=== PATIENT | male | born 1935 | race Caucasian/White ===

== ENCOUNTER 2017-07-25 23:13 | Inpatient (IN) | payer MEDICARE ==
[~2017-07-25] VITALS: Ht 185.4 cm; Wt 91.2 kg
[2017-07-25] MEDS ORDERED: METFORMIN HCL850 MG PO (23:35)
[2017-07-25] MEDS ORDERED: ZESTRIL20 MG PO (23:35)
[2017-07-25] MEDS ORDERED: PENTOXIFYL XR400 M1 PO (23:36)
[2017-07-25 23:54] LABS: BASOPHIL % 0.4 % (0-2); PLATELET COUNT 335 x10^3mcL (130-400); RED CELL DISTRIBUTION WIDTH 13.1 % (11.5-14.5)
[2017-07-25 23:57] LABS: UA SPECIFIC GRAVITY 1.025 (1.005-1.035); microscopic required? YES; urine erythrocyte 2+ (NEGATIVE)
[2017-07-26 00:04] LABS: CALCIUM 8.3 mg/dL (8.5-10.1); CARBON DIOXIDE 22.9 mmol/L (21-32); CHLORIDE SERUM 101 mmol/L (98-107); CREATININE SERUM 1.5 mg/dL (0.7-1.3); GLUCOSE SERUM 260 mg/dL (74-106); SODIUM SERUM 137 mmol/L (136-145)
[2017-07-26 00:17] LABS: ALKALINE PHOSPHATASE 114 U/L (46-116); ALT/SGPT 17 U/L (16-63); AST/SGOT 17 U/L (15-37); BILIRUBIN TOTAL 0.4 mg/dL (0.20-1.00); TOTAL PROTEIN, SERUM 7.8 g/dL (6.4-8.2)
[2017-07-26 00:18] LABS: ALBUMIN 3.1 g/dL (3.4-5.0); CK-MB 0.7 ng/mL (0-3.6)
[2017-07-26 02:09] LABS: CHOLESTEROL/HDL RATIO 5.2; MAGNESIUM 1.4 mg/dL (1.8-2.4)
[2017-07-26 02:13] LABS: T3 TOTAL 0.72 ng/mL
[2017-07-26 02:15] LABS: FREE T4 0.99 ng/dL (0.76-1.46); FREE THYROXINE INDEX 2.3 ug/dL (1.4-4.5); T4(THYROXINE) 6.5 ug/dL (4.7-13.3)
[2017-07-26 02:28] VITALS: BP 118/57
[2017-07-26 05:15] VITALS: BP 99/55
[2017-07-26 07:54] LABS: BASOPHIL % 0.3 % (0-2); PLATELET COUNT 281 x10^3mcL (130-400)
[2017-07-26 08:02] LABS: CALCIUM 7.4 mg/dL (8.5-10.1); CARBON DIOXIDE 23.2 mmol/L (21-32); CHLORIDE SERUM 107 mmol/L (98-107); CREATININE SERUM 1.2 mg/dL (0.7-1.3); GLUCOSE SERUM 222 mg/dL (74-106); SODIUM SERUM 141 mmol/L (136-145)
[2017-07-26 09:19] VITALS: BP 109/56
[2017-07-26 12:03] VITALS: BP 115/52
[2017-07-26 17:52] VITALS: BP 131/64
[2017-07-26 21:45] VITALS: BP 142/69
[2017-07-27 05:42] VITALS: BP 136/68
[2017-07-27 05:57] LABS: BASOPHIL % 0.1 % (0-2); PLATELET COUNT 314 x10^3mcL (130-400); RED CELL DISTRIBUTION WIDTH 13.1 % (11.5-14.5)
[2017-07-27 06:15] LABS: CALCIUM 8.4 mg/dL (8.5-10.1); CARBON DIOXIDE 24.6 mmol/L (21-32); CHLORIDE SERUM 102 mmol/L (98-107); CREATININE SERUM 1.2 mg/dL (0.7-1.3); GLUCOSE SERUM 146 mg/dL (74-106); MAGNESIUM 1.8 mg/dL (1.8-2.4); PHOSPHOROUS 2.7 mg/dL (2.5-4.9); POTASSIUM SERUM 4.5 mmol/L (3.5-5.1); SODIUM SERUM 136 mmol/L (136-145)
[2017-07-27 09:56] VITALS: BP 123/70
[2017-07-27 11:34] VITALS: BP 123/64
[2017-07-27 16:59] VITALS: BP 136/68
[2017-07-27 21:58] VITALS: BP 136/83
[2017-07-28 06:07] LABS: BASOPHIL % 0.3 % (0-2); PLATELET COUNT 301 x10^3mcL (130-400); RED CELL DISTRIBUTION WIDTH 12.5 % (11.5-14.5)
[2017-07-28 06:14] VITALS: BP 124/61
[2017-07-28 06:21] LABS: CALCIUM 8.4 mg/dL (8.5-10.1); CARBON DIOXIDE 25.8 mmol/L (21-32); CHLORIDE SERUM 102 mmol/L (98-107); CREATININE SERUM 1.1 mg/dL (0.7-1.3); GLUCOSE SERUM 145 mg/dL (74-106); MAGNESIUM 1.7 mg/dL (1.8-2.4); PHOSPHOROUS 2.9 mg/dL (2.5-4.9); POTASSIUM SERUM 3.7 mmol/L (3.5-5.1); SODIUM SERUM 136 mmol/L (136-145)
[2017-07-28 08:31] VITALS: BP 121/68
[2017-07-28 12:16] VITALS: BP 18/69
[2017-07-28 16:40] VITALS: BP 101/62
[2017-07-28] MEDS ORDERED: METOPROLOL TART25 M1 PO (17:36)
[2017-07-28] MEDS ORDERED: LIPI20 PO (17:36)
[2017-07-28] MEDS ORDERED: ZES20 PO (17:38)
[2017-07-28] MEDS ORDERED: VITC PO (17:39)
[2017-07-28] MEDS ORDERED: THERA TABS1 TAB PO (17:39)
[2017-07-28] MEDS ORDERED: GLU850 PO (17:39)
[2017-07-28] MEDS ORDERED: PLA75 PO (17:56)
[2017-07-28] MEDS ORDERED: LEVAQUIN750 MG PO (18:03)
[2017-07-28] MEDS ORDERED: LAC PO (18:03)
[2017-07-28 20:44] VITALS: BP 128/68
[2017-07-29 05:03] VITALS: BP 125/65
[2017-07-29 06:09] LABS: BASOPHIL % 0.4 % (0-2); PLATELET COUNT 320 x10^3mcL (130-400); RED CELL DISTRIBUTION WIDTH 12.7 % (11.5-14.5)
[2017-07-29 06:29] LABS: CALCIUM 8.6 mg/dL (8.5-10.1); CARBON DIOXIDE 26.5 mmol/L (21-32); CHLORIDE SERUM 103 mmol/L (98-107); CREATININE SERUM 1.1 mg/dL (0.7-1.3); GLUCOSE SERUM 143 mg/dL (74-106); MAGNESIUM 1.7 mg/dL (1.8-2.4); PHOSPHOROUS 3.7 mg/dL (2.5-4.9); POTASSIUM SERUM 3.9 mmol/L (3.5-5.1); SODIUM SERUM 139 mmol/L (136-145)
[2017-07-29 08:27] VITALS: BP 134/65
[2017-07-29] MEDS ORDERED: CLEOCIN HCL300 MG PO (11:49)
[2017-07-29] MEDS ORDERED: LAC PO (11:55)
[2017-07-29] MEDS ORDERED: LEVAQUIN750 MG PO (11:55)
[2017-07-29] MEDS ORDERED: FLAGYL500 MG PO (12:13)
[2017-07-29 12:35] VITALS: BP 134/65
[2017-07-29] MEDS ORDERED: DIFLUCAN150 MG PO (14:12)
[2017-07-29] MEDS ORDERED: FLUCONAZOLE200 M2 PO ×2 (14:38)
[2017-07-29] MEDS ORDERED: CIPROFLOXACIN500 MG PO (16:28)
[2017-07-29] MEDS ORDERED: BACTRIM DS1 TAB PO (16:44)
== END 2017-07-29 15:36 | disposition home or self-care (01) | DRG 871 ==
LOC: ED 23:13 → DU 07-26 01:07
PROVIDERS: Emergency Medicine; ADMIT Family Medicine
PROC: 0HDNXZZ Extraction of Left Foot Skin, External Approach (ICD-10-PCS; principal; 2017-07-26)
DX: A41.02 Sepsis due to Methicillin resistant Staphylococcus aureus (principal); N17.0 Acute kidney failure with tubular necrosis; I21.4 Non-ST elevation (NSTEMI) myocardial infarction; L89.624 Pressure ulcer of left heel, stage 4; J69.0 Pneumonitis due to inhalation of food and vomit; L03.116 Cellulitis of left lower limb; D68.69 Other thrombophilia; N39.0 Urinary tract infection, site not specified; E44.0 Moderate protein-calorie malnutrition; E11.51 Type 2 diabetes mellitus with diabetic peripheral angiopathy without gangrene; E11.621 Type 2 diabetes mellitus with foot ulcer; E11.65 Type 2 diabetes mellitus with hyperglycemia; R65.20 Severe sepsis without septic shock; E83.39 Other disorders of phosphorus metabolism; R31.9 Hematuria, unspecified; E83.51 Hypocalcemia; M77.32 Calcaneal spur, left foot; E78.5 Hyperlipidemia, unspecified; Z68.26 Body mass index [BMI] 26.0-26.9, adult; I25.10 Atherosclerotic heart disease of native coronary artery without angina pectoris; Z79.84 Long term (current) use of oral hypoglycemic drugs
CPT/HCPCS: 82962; 83880; 84439; 97110-GP; 97530-GP; 97542-GP; A9500; J0696; J1644; J1956; J2785; J3475; J3490; J7030; J7040; Q0092